=== PATIENT | female | born 1965 | race Caucasian/White ===

== ENCOUNTER 2022-02-15 09:52 | Outpatient (CLI) | payer OTHER, SELFPAY ==
[2022-02-15 11:44] LABS: Free T4 Free Thyroxine* 1.13 ng/dL (0.70-1.85)
== END 2022-02-15 09:53 | disposition home or self-care (01) ==
PROVIDERS: PCP Internal Medicine; Visit Provider Internal Medicine
DX: E03.9 Hypothyroidism, unspecified (principal)
CPT/HCPCS: 84439; 84443

== ENCOUNTER 2022-05-07 08:05 | Outpatient (CLI) | payer OTHER, SELFPAY ==
--- NOTE | 2022-05-07 08:15 | MR_ITS ---
[facility] [address] [facility] [address] Phone:?[phone] Fax:?[phone] Referring Physician Information: Ishmael Jiang M.D. [address] [place] [address] Phone:?[phone] Fax:?[phone] Patient:?Ryann Christina D.O.B:?1965 Sex:?Female Phone:?[phone] [facility] MRN:?[id number] Exam Date:?05/07/2022 ? EXAM: MRI of the RIGHT KNEE, without contrast CLINICAL HISTORY: Right knee pain. Evaluate for new lateral meniscal root tear. History of previous right knee surgery. COMPARISONS: MRI 11/09/2019. TECHNICAL: MR sequences of the right knee: sagittals: PD, PDFS coronals: PD, STIR axials: PD, T2 FS CONTRAST: None SEDATION: None FINDINGS: Bones: No fracture, bone marrow contusion, or other suspicious bone marrow signal abnormality. Patellofemoral joint: Cartilage: Diffuse near full-thickness and full-thickness chondromalacia over all portions of the patella with mild associated degenerative subchondral cystic changes, similar compared to previous MRI 11/09/2019. Retinacula: The medial and lateral retinacula are intact. Fat pads: The infrapatellar, quadriceps, and prefemoral fat pads are unremarkable. Knee joint: Effusion: Moderate right knee joint effusion. Popliteal cyst: None. Intra-articular bodies: None. Posteromedial corner: The semimembranosus and pes anserine tendons are intact. Medial compartment: Medial meniscus: Intact. Cartilage: Intact. Lateral compartment: Lateral meniscus: Surgical changes status post repair of the posterior root of the lateral meniscus. Uncovering of the surgical anchor best seen on sagittal series 5 and 6 image 14 is consistent with recurrent tear. Sharp truncation of the posterior horn of the lateral meniscus is consistent with surgical change status post partial lateral meniscectomy. Correlate with surgical history. Cartilage: 1.0 x 1.0 cm area of near full-thickness chondral loss over the posterior weightbearing portion of the lateral femoral condyle, new compared to previous MRI 11/09/2019, and extensive grade II and III chondromalacia over the central, posterior, and medial portions of the lateral tibial plateau, mildly progressed compared to previous MRI. Ligaments: Anterior cruciate ligament: Intact. Posterior cruciate ligament: Intact. Medial collateral ligament: Intact. Posterior oblique ligament: Intact. Fibular collateral ligament: Intact. Posterolateral corner: The distal biceps femoris tendon, iliotibial band, popliteus tendon, popliteus muscle, popliteofibular ligament, and arcuate ligament are intact. Extensor mechanism: Patellar tendon: Intact. Quadriceps tendon: Intact. IMPRESSION: 1. Surgical changes status post repair of the posterior root of the lateral meniscus. Uncovering of the surgical anchor is consistent with recurrent posterior root tear. Sharp truncation of the posterior horn of the lateral meniscus is consistent with surgical change status post partial lateral meniscectomy. Correlate with surgical history. 2. 1.0 x 1.0 cm area of near full-thickness chondral loss over the posterior weightbearing portion of the lateral femoral condyle, new compared to previous MRI 11/09/2019. Extensive grade II and III chondromalacia over the central, posterior, and medial portions of the lateral tibial plateau, mildly progressed compared to previous MRI 11/09/2019. 3. Diffuse near full-thickness and full-thickness chondromalacia over all portions of the patella with mild associated degenerative subchondral cystic changes, similar compared to previous MRI 11/09/2019. 4. Moderate right knee joint effusion. 5. No medial meniscal tear or ligamentous injury of the right knee. RCB Electronically signed on 05/07/2022 12:11:00 PM by Doug Patel M.D.
== END 2022-05-07 08:06 | disposition home or self-care (01) ==
LOC: MRI 08:06
PROVIDERS: PCP Internal Medicine; Visit Provider Orthopaedic Surgery
DX: M25.561 Pain in right knee (principal); M17.11 Unilateral primary osteoarthritis, right knee; M94.261 Chondromalacia, right knee; M25.461 Effusion, right knee; M22.41 Chondromalacia patellae, right knee; Z98.890 Other specified postprocedural states
CPT/HCPCS: 73721

== ENCOUNTER 2022-05-17 10:37 | Outpatient (CLI) | payer OTHER, SELFPAY ==
--- NOTE | 2022-05-17 10:45 | CRLHL7_ITS ---
For Patients: As a result of the Cures Act, medical imaging exams and procedure reports are released immediately into your electronic medical record. You may view this report before your referring provider. If you have questions, please contact your health care provider. BILATERAL SCREENING MAMMOGRAM WITH COMPUTER-AIDED DETECTION AND TOMOSYNTHESIS TECHNIQUE: CC and MLO views were obtained. These mammographic images have been obtained using full-field digital technique. These mammographic images were interpreted with the benefit of computer-aided detection. Breast Tomosynthesis was used in this interpretation. COMPARISON FILM: 05/07/21, 04/11/20, 03/30/19. FINDINGS: The breasts are heterogeneously dense, which may obscure small masses IMPRESSION: There is no radiographic evidence for malignancy. ASSESSMENT: BI-RADS Category 1: Negative RECOMMENDATION: Routine screening mammogram in 1 year. A lay language report of this examination will be provided to the patient. Deborah Murguia M.D. Diagnostic/Breast Radiologist [email or web address] Transcribed: 1:18 p.mervat arreguin/Dictated by: Deborah Murguia MD @ 05/17/2022 12:09:00 PM (Electronically Signed)
== END 2022-05-17 10:38 | disposition home or self-care (01) ==
LOC: MAMMO 10:37
PROVIDERS: PCP Internal Medicine; Visit Provider Obstetrics & Gynecology
DX: Z12.31 Encounter for screening mammogram for malignant neoplasm of breast (principal); R92.2 Inconclusive mammogram
CPT/HCPCS: 77063; 77067

== ENCOUNTER 2022-06-05 10:07 | Outpatient (CLI) | payer OTHER, SELFPAY ==
[2022-06-05 11:35] LABS: SARS PCR* Negative SARS-CoV-2 (Negative)
== END 2022-06-05 10:08 | disposition home or self-care (01) ==
PROVIDERS: PCP Internal Medicine; Visit Provider Orthopaedic Surgery
DX: Z20.822 Contact with and (suspected) exposure to COVID-19 (principal)
CPT/HCPCS: 87635

== ENCOUNTER 2022-06-06 08:48 | Day surgery (SDC) | payer OTHER, SELFPAY ==
[2022-06-06] VITALS (14 sets, daily range): BP systolic 115–137; BP diastolic 78–89; PULSE 46–64; RESP 16; TEMP 36.1–37.1; O2SAT 96–99; BMI 24.1
[2022-06-06] MEDS: LACTATED RINGERS 1000 ML 1,000 ML 100 ML IV (08:55)
[2022-06-06] MEDS: SODIUM CHLORIDE 0.9 % (FLUSH) 10 ML SYRINGE IVF (09:31)
[2022-06-06] MEDS: CEFAZOLIN 2 GM INJ IVP (09:45)
--- NOTE | 2022-06-06 09:52 | W.ANESCHARGE ---
Anesthesia Charges Start Date/Time Anesthesia Start Date: 06/06/22 Anesthesia Start Time: 09:39 Stop Date/Time Anesthesia Stop Date: 06/06/22 Anesthesia Stop Time: 10:46
[2022-06-06] MEDS: BUPIVACAINE 0.25% 30 ML INJECTION (10:32)
--- NOTE | 2022-06-06 10:42 | P.ORPRC_ITS ---
Procedure Note Date of procedure: 06/06/22 Procedure: PREOPERATIVE DIAGNOSIS: Right knee recurrent lateral meniscus tear POSTOPERATIVE DIAGNOSIS: Right knee recurrent lateral meniscus tear NAME OF OPERATION: Right knee arthroscopic partial lateral meniscectomy SURGEON: Ishmael Jiang MD NEUROLOGY NURSE: MIGUELINA Hernandez ANESTHESIA: Spinal ESTIMATED BLOOD LOSS: 0 mL COMPLICATIONS: None SPECIMENS: None DRAINS: None PREOPERATIVE ANTIBIOTICS: Ancef 2 gram INDICATIONS: The patient is a 56-year-old with a history of right knee lateral pain after recent event. She has previously undergone successful lateral meniscus root repair with a good result until this more recent event. Now she has recurrent symptoms. MRI scan is consistent with a recurrent lateral meniscus tear. Despite appropriate nonoperative management, including activity modification, antiinflammatories, ejnt-fax-wxyxhsh pain medication, bracing, physical therapy, and injections they continue to have pain and disability. Operative intervention was offered. The risks, benefits and expected outcomes were discussed in detail. These included but were not limited to: Infection, bleeding, injury to blood vessel or nerve, venous thromboembolism. All questions were answered to their satisfaction. PROCEDURE: Spinal anesthesia was administered. The patient was placed supine on the operating room table. The right lower extremity was prepped and draped in the usual sterile fashion. The limb was exsanguinated with the Eber bandage. The pneumatic tourniquet was inflated to 300 mmHg. A standard anterolateral portal was established. The arthroscope was introduced. The working portal was established anteromedially. Diagnostic arthroscopy was performed with findings as follows: The suprapatellar pouch is normal. Articular surface on the patella shows diffuse grade 3 and focal grade 4 change. Articular surface on the trochlea diffuse grade 2/3 change. The medial gutter is normal. The medial compartment shows normal articular cartilage on the medial femoral condyle and medial tibial plateau. The medial meniscus is normal. The notch shows the ACL to be intact. The lateral compartment shows diffuse grade 3 change on the lateral femoral condyle, diffuse grade 2 change on the lateral tibial plateau. The lateral meniscus shows 1 of the fiber link sutures has pulled through the lateral meniscus. The loop is sticking out of the bone and in the joint. The posterior root of the lateral meniscus is healed to the bone and is stable to probing. There is some degenerative tearing of the posterior horn of the lateral meniscus. Inspecting the midbody shows an area that looks abnormal. When probing this area a large anteriorly based parrot-beak tear of the lateral meniscus was encountered. The unstable flap was displaced under the body of the lateral meniscus. The lateral gutter has some loose articular cartilage pieces. The displaced lateral meniscus flap was reduced into the knee joint. It was amputated at the anterior apex with a basket. The unstable flap was removed with the pituitary rongeur. The midbody and posterior horn were contoured with the shaver, taken to a stable base. Again, the posterior root is healed and stable to probing. Unstable chondral flaps on the lateral femoral condyle and femoral trochlea were debrided with the shaver through both portals, taken to a stable base. Loose bodies in the lateral gutter were debrided with the shaver. Arthroscopic instruments were removed, the portal sites were Steri-Stripped closed, the knee was infiltrated with 30 mL of 0.25% Marcaine without epinephrine. A dry dressing was applied, the tourniquet was released. Sponge and needle counts were correct x 2. The patient tolerated the procedure well. There were no apparent complications. They were carefully transferred to the hospital bed and taken to the posta nesthesia care unit in satisfactory condition. PLAN: The patient will be discharged to home. They may weightbear as tolerates. Range of motion will be unrestricted. They will follow up in the [facility] next week for a wound check.
--- NOTE | 2022-06-06 10:59 | W.ANESCHARGE ---
Anesthesia Charges Start Date/Time Anesthesia Start Date: 06/06/22 Anesthesia Start Time: 09:39 Stop Date/Time Anesthesia Stop Date: 06/06/22 Anesthesia Stop Time: 10:46
[2022-06-06] MEDS: fentaNYL 100 MCG/2 ML inj 50 MCG IVP (11:16)
[2022-06-06] MEDS: OxyCODONE/APAP 5-325 TABLET 1 TAB PO (12:41)
== END 2022-06-06 12:56 | disposition home or self-care (01) ==
PROVIDERS: PCP Internal Medicine; Visit Provider Orthopaedic Surgery
PROC: (CPT 29882; principal; 2022-06-06 10:00)
DX: M23.251 Derangement of posterior horn of lateral meniscus due to old tear or injury, right knee (principal)
CPT/HCPCS: 29881; 01400; A9270; J0690; J1100; J2250; J2405; J2704; J3010; J3490; J7120

== ENCOUNTER 2022-09-05 10:09 | Outpatient (CLI) | payer OTHER, SELFPAY ==
--- OUTSIDE RECORDS SUMMARY | 2022-09-08 08:39 | XMS_ITS | Continuity of Care Document ---
Author Name Unknown Organization [facility] Address [address] [place] [address] Phone Care Team Providers Care Power Shovel Mechanic Name Role Phone Jacobo Cheney MD Unavailable Unavailable Allergies, Adverse Reactions, Alerts Substance Reaction Status Criticality No Known Allergies Active No Inform ation Medications Medication Instructions Dosage Effective Dates (start - stop) Status Comments IBUPROFEN (unknown strength) Not Available - Active Procedures Procedure Date Office/Outpatient Visit,[facility], [place] 2017 Office/Outpatient Visit,[place] [facility] [place] Advance Directives Directive Yes / No Effective Date File Name No Information Encounters Encounter Description Practice Location Reason(s) For Visit Diagnoses Date Provider Providers Copied on Encounter Office/Outpati ent Visit,[place], [facility] , [address] [place] [address], [id number], tel:[phone] [facility] Radiculop[facility], cervical region Shravan Centeno. [facility], [address] [place] [address], [id number], [place]. tel:[phone] Referring Provider: Gerald Smith, [facility] [address] [place], [address]. tel:[phone] Office/Outpati ent Visit,[place], [facility] , [address] [facility], [place], [place], [id number], tel:[phone] [facility] Radiculopat hy, cervical region Brent Balderas. [facility], [address] [place] [address] [address] [facility], [place], [place], [id number], . tel:[phone] Referring Provider: Gerald Smith [facility] [address] [place], [address]. tel:[phone] Family History Family Member Type Diagnosis Age At Onset No Information Payers Payer name Insurance type Covered libertarian ID Jose Alfredo singh(s) [facility] [facility] [id number] Social History Type Description Quantity Date Captured Comments Alcohol Use Details Unknown Caffeine Use Details Unknown Tobacco Use Status Never smoked tobacco 2017 Smoking Status Never smoker Sex Female Vital Signs Date / Time: Height Weight BMI Pulse Rate Blood Pressure Temperature Respiratory Rate Body Surface Area Head Circumference Head Circ. Percentile Wt./Errol. Percentile BMI percentile Pulse Ox Inhaled Ox 10:20 AM 68.75 in 71.214 kg (157.00 lbs) 23.3 5 kg/m eter (2) 61 /min 121/77 mm[Hg] Chief Complaint And Reason For Visit No Information Reason For Referral Reason For Referral No Information Plan Of Treatment Date Type Action Status No Information History Of Present Illness Encounter Date Complaint History Of Prese nt Illness No Information Functional Status Date Functional Assessmen t No Information Instructions Date Instruction Additional Infor mation No Information Assessments Type Assessment Date assessment Radiculopathy, cervical region D Patient Care Teams Name Effective Dates (start - stop) Status Members No Information
== END 2022-09-05 10:10 | disposition home or self-care (01) ==
LOC: NFLDREF 09-08 08:37
PROVIDERS: PCP Internal Medicine; Referring Provider Internal Medicine; Visit Provider Obstetrics & Gynecology
DX: E03.9 Hypothyroidism, unspecified (principal)
CPT/HCPCS: 84439; 84443

== ENCOUNTER 2022-10-11 08:10 | Outpatient (CLI) | payer OTHER, SELFPAY ==
--- OUTSIDE RECORDS SUMMARY | 2022-10-11 14:49 | XMS_ITS | Continuity of Care Document ---
Author Name Unknown Organization [facility] Address [address] [place] [address] Phone Care Team Providers Care Salesperson New Cars Name Role Phone Jacobo Cheney MD Unavailable Unavailable Allergies, Adverse Reactions, Alerts Substance Reaction Status Criticality No Known Allergies Active No Inform ation Medications Medication Instructions Dosage Effective Dates (start - stop) Status Comments IBUPROFEN (unknown strength) Not Available - Active Procedures Procedure Date Office/Outpatient Visit,[facility], Mod 2017 Office/Outpatient Visit,[place], [facility] [place] Advance Directives Directive Yes / No Effective Date File Name No Information Encounters Encounter Description Practice Location Reason(s) For Visit Diagnoses Date Provider Providers Copied on Encounter Office/Outpati ent Visit,[place], [facility] , [address] [place] [address], [id number], tel:[phone] [facility] Radiculop[facility], cervical region Shravan Centeno. [facility], [address] [place] [address], [id number], [place]. tel:[phone] Referring Provider: Gerald Smith, [facility] [address] [place], [address]. tel:[phone] Office/Outpati ent Visit,[place], [facility] , [address] [facility], [place], [place], [id number], tel:[phone] [facility] Radiculopat hy, cervical region Brent Balderas. [facility], [address] [place] [address] [address] [facility], [place], [place], [id number], . tel:[phone] Referring Provider: Gerald Smith [facility] [address] [place], [address]. tel:[phone] Family History Family Member Type Diagnosis Age At Onset No Information Payers Payer name Insurance type Covered constitution party ID Jose Alfredo singh(s) [facility] [id number] Social History Type Description Quantity Date Captured [...] For Referral Reason For Referral No Information History Of Present Illness Encounter Date Complaint History Of Prese nt Illness No Information Functional Status Date Functional Assessmen t No Information Instructions Date Instruction Additional Infor mation No Information Assessments Type Assessment Date assessment Radiculopathy, cervical region D Patient Care Teams Name Effective Dates (start - stop) Status Members No Information
== END 2022-10-11 08:11 | disposition home or self-care (01) ==
LOC: NFLDREF 14:48
PROVIDERS: PCP Internal Medicine; Referring Provider Internal Medicine; Visit Provider Internal Medicine
DX: E03.9 Hypothyroidism, unspecified (principal)
CPT/HCPCS: 84439; 84443

== ENCOUNTER 2023-05-20 15:10 | Outpatient (CLI) | payer OTHER, SELFPAY ==
--- NOTE | 2023-05-20 15:20 | MM_ITS ---
Patient: DALTON RIBEIRO Facility:?[facility] Patient ID:?[id number] Site Patient ID:?[id number]. Site :?1965 Study:?XRay-Breast 3D W/CAD-05/20/2023 3:32:48 PM Ordering Physician:?Jaquelin Guillen Final Report: BILATERAL SCREENING MAMMOGRAM WITH COMPUTER-AIDED DETECTION AND TOMOSYNTHESIS TECHNIQUE: CC and MLO views were obtained. These mammographic images have been obtained using full-field digital technique. These mammographic images were interpreted with the benefit of computer-aided detection. Breast Tomosynthesis was used in this interpretation. COMPARISON FILM: 05/17/22, 05/07/21, 04/11/21. FINDINGS: The breasts are heterogeneously dense, which may obscure small masses. IMPRESSION: There is no radiographic evidence for malignancy. ASSESSMENT: BI-RADS Category 1: Negative RECOMMENDATION: Routine screening mammogram in 1 year. A lay language report of this examination will be provided to the patient. Gildardo Floyd M.D. Diagnostic Radiologist [email or web address] DSM/sp R& Transcribed: 2:45 p.m. SP/Dictated by: Gildardo Floyd MD @ 05/21/2023 10:49:00 AM Signed by:?Gildardo Floyd MD @05/21/2023 3:20:32 PM (Electronic Signature)
== END 2023-05-20 15:11 | disposition home or self-care (01) ==
PROVIDERS: PCP Internal Medicine; Visit Provider Obstetrics & Gynecology
DX: Z12.31 Encounter for screening mammogram for malignant neoplasm of breast (principal); R92.2 Inconclusive mammogram
CPT/HCPCS: 77063; 77067

== ENCOUNTER 2023-11-23 17:20 | Outpatient (CLI) | payer OTHER, SELFPAY ==
--- OUTSIDE RECORDS SUMMARY | 2023-12-02 15:02 | XMS_ITS | Continuity of Care Document ---
Author Organization [facility] Address [address] [place] [address] Phone Care Team Providers Care Measuring Machine Tender Name Role Phone Jacobo Cheney MD Unavailable Unavailable Allergies, Adverse Reactions, Alerts Substance Reaction Status Criticality No Known Allergies Active No Inform ation Medications Medication Instructions Dosage Effective Dates (start - stop) Status Comments IBUPROFEN (unknown strength) Not Available - Active Procedures Procedure Date Office/Outpatient Visit,[facility] [place] [facility] [place] Advance Directives Directive Yes / No Effective Date File Name No Information Encounters Encounter Description Practice Location Reason(s) For Visit Diagnoses Date Provider Providers Copied on Encounter Office/Outpati ent Visit,Est, [facility], [address], [place], [place], [id number], [place] tel:[phone] [facility] Radiculopat hy, cervical region Shravan Centeno. [facility] , [address] [facility] , [place], [address], [place]. tel:[phone] Referring Provider: Gerald Smith, [facility] [address] [place], [address]. tel:[phone] Office[place]pat[place] [facility] [place] [facility], [address], [place], [place], [id number], [place] tel:[phone] [facility], [address], [place], [place], [id number], [place]. tel:[phone] Referring Provider: Gerald Smith [facility] [address] [place], [address]. tel:[phone] Family History Family Member Type Diagnosis Age At Onset No Information Payers Payer name Insurance type Covered democrat ID Authoriza tion(s) No Information Social History Type Description Quantity Date Captured [...]
== END 2023-11-23 17:21 | disposition home or self-care (01) ==
LOC: NFLDREF 12-02 15:01
PROVIDERS: PCP Internal Medicine; Visit Provider Internal Medicine
DX: E03.9 Hypothyroidism, unspecified (principal)
CPT/HCPCS: 84443

== ENCOUNTER 2024-04-23 06:58 | Outpatient (CLI) | payer OTHER, SELFPAY | END 2024-04-23 06:59 | disposition home or self-care (01) | LOC: NFLDREF 04-28 00:17 | PROVIDERS: PCP Internal Medicine; Referring Provider Internal Medicine; Visit Provider Obstetrics & Gynecology | DX: M85.80 Other specified disorders of bone density and structure, unspecified site (principal); E03.9 Hypothyroidism, unspecified; Z13.1 Encounter for screening for diabetes mellitus; Z13.6 Encounter for screening for cardiovascular disorders | CPT/HCPCS: 80061; 82947; 84443 ==

== ENCOUNTER 2024-05-13 15:09 | Outpatient (CLI) | payer OTHER, SELFPAY ==
--- NOTE | 2024-05-13 15:30 | CRLHL7_ITS ---
For Patients: As a result of the Century Cures Act, medical imaging exams and procedure reports are released immediately into your electronic medical record. You may view this report before your referring provider. If you have questions, please contact your health care provider. XR DXA Bone Mineral Density (BMD) Reason for exam: Osteopenia. Current height (in): 69. Weight (lb): 162. Menopause age: 45. Ethnicity: White. 1. Have you had a previous hip or vertebral fracture? No. 2. Have you had any fractures during your adult life which did not result from significant trauma (e.g., auto accident)? No. 3. Did either of your parents have a hip fracture? Yes. 4. Do you smoke? No. 5. Have you ever taken Glucocorticoids? Yes. 6. Do you have rheumatoid arthritis? No. 7. Do you have secondary osteoporosis? No. 8. Do you drink 3 or more alcoholic drinks per day? No. 9. Are you being treated for osteoporosis? No. 10. Have you ever taken any of the following medications: Actonel, Evista, Fosamax, Miacalcin, Reclast, Boniva, Forteo, HRT (i.e., estrogen/hormone therapy), Protelos, Prolia, Vitamin D, Calcium, other ??? please specify. ANSWER: Yes, vitamin D. 11. Do you have any of the following medical conditions: Anorexia or bulimia, asthma or emphysema, end stage renal disease, hyperparathyroidism, any seizure disorders, cancer, inflammatory bowel diseases, hysterectomy, other ??? please specify. ANSWER: No. 12. What was your maximum height (inches)? 69.5. 13. Do you perform weight bearing exercise regularly? Yes. 14. Do you regularly consume dairy products? Yes. 15. Do you drink caffeinated beverages? Yes. 16. At what age did your period start? 12. 17. Are you premenopausal? No. 18. How many full-term pregnancies have you had? 2. 19. Have you ever missed your period for more than 6 months in a row (not including or menopause)? No. TECHNIQUE: Bone mineral density study was performed using the [employer]. FINDINGS: The results of the study expressed as bone mineral density (BMD) are as follows: Lumbar spine L1 to L4: BMD: 0.858 g/cm2. T-score: -1.7. Z-score: -0.3 Neck Left: BMD: 0.649 g/cm2. T-score: -1.8. Z-score: -0.5 Right: BMD: 0.641 g/cm2. T-score: -1.9. Z-score: -0.6 Total Left: BMD: 0.851 g/cm2. T-score: -0.7. Z-score: 0.2 Right: BMD: 0.864 g/cm2. T-score: -0.6. Z-score: 0.3 IMPRESSION: Osteopenia. *Comparison exams done prior to 08/2019 were performed on different unit, [facility]. COMPARISON: Compared with scan of 05/03/2021, the bone mineral density has decreased by 2.5 percent at the spine and increased by 3.8 percent at the hip. FRAX 10-year Fracture Risk Major Osteoporotic Fracture: 26% Hip Fracture: 1.9% Reported Risk Factors: [place] () Neck BMD=0.641, BMI=23.9, parental fracture, glucocorticoids Shruti Beverly M.D. Diagnostic Radiologist [email or web address] MELANIA/[email or web address] arreguin/Dictated by: Shruti Beverly MD @ 05/14/2024 8:06:00 AM (Electronically Signed)
== END 2024-05-13 15:10 | disposition home or self-care (01) ==
LOC: RAD 15:10
PROVIDERS: PCP Internal Medicine; Visit Provider Obstetrics & Gynecology
DX: M85.80 Other specified disorders of bone density and structure, unspecified site (principal); M85.89 Other specified disorders of bone density and structure, multiple sites
CPT/HCPCS: 77080

== ENCOUNTER 2024-05-25 15:11 | Outpatient (CLI) | payer OTHER, SELFPAY ==
--- NOTE | 2024-05-25 15:20 | CRLHL7_ITS ---
For Patients: As a result of the Century Cures Act, medical imaging exams and procedure reports are released immediately into your electronic medical record. You may view this report before your referring provider. If you have questions, please contact your health care provider. BILATERAL SCREENING MAMMOGRAM WITH COMPUTER-AIDED DETECTION AND TOMOSYNTHESIS TECHNIQUE: CC and MLO views were obtained. These mammographic images have been obtained using full-field digital technique. These mammographic images were interpreted with the benefit of computer-aided detection. Breast Tomosynthesis was used in this interpretation. COMPARISON FILM: 05/20/23, 05/17/22, 05/07/21. FINDINGS: The breasts are heterogeneously dense, which may obscure small masses. IMPRESSION: There is no radiographic evidence for malignancy. ASSESSMENT: BI-RADS Category 1: Negative RECOMMENDATION: Routine screening mammogram in 1 year. A lay language report of this examination will be provided to the patient. Gildardo Floyd M.D. Diagnostic Radiologist [email or web address] SP/Dictated by: Gildardo Floyd MD @ 05/26/2024 9:26:00 AM (Electronically Signed)
== END 2024-05-25 15:12 | disposition home or self-care (01) ==
LOC: MAMMO 15:11
PROVIDERS: PCP Internal Medicine; Visit Provider Obstetrics & Gynecology
DX: Z12.31 Encounter for screening mammogram for malignant neoplasm of breast (principal); R92.333 Mammographic heterogeneous density, bilateral breasts
CPT/HCPCS: 77063; 77067

== ENCOUNTER 2024-10-20 08:14 | Outpatient (CLI) | payer OTHER, SELFPAY | END 2024-10-20 08:15 | disposition home or self-care (01) | PROVIDERS: PCP Internal Medicine; Visit Provider Internal Medicine | DX: R23.2 Flushing (principal); Z13.29 Encounter for screening for other suspected endocrine disorder | CPT/HCPCS: 80053; 84443 ==